=== PATIENT | male | born 1935 | race Caucasian/White ===

== ENCOUNTER → 2019-01-07 | Day surgery (SDC) | payer MEDICARE ==
[~2019-01-07] MED LIST: ALEVE220 M1 PO; ARICEPT5 MG PO; ASPIRIN81 MG PO; CELEBREX100 MG PO; CYMBALTA30 MG PO; FINASTERIDE5 MG PO; FLOMAX PO; FLUTICASONE; IOPAMIDOL 200 MG/ML 20 ML VIAL IT ONE; LIDOCAINE HCL 1% 30ML-PF VIAL ONE; LIDOCAINE HCL 2% LOCAL INJ 5 ML SDV VIAL INJ ONE; LINZESS PO; MYRBETRIQ50 MG PO; NAMENDA10 MG PO; OMEPRAZOLE20 MG PO; OMEPRAZOLE40 MG PO; PROPOFOL IV EMULSION 10 MG/ML 20 ML VIAL ONE; SINGULAIR10 MG PO; TRIAMCINOLONE ACET 40 MG/ML VIAL ONE; VIT B12 PO; avodart PO
--- OUTSIDE RECORDS SUMMARY | 2019-01-07 05:26 | XMS REPORT ---
[facility] Address Unknown Phone Unavailable Care Team Providers Care Intermediate Card Tender Name Role Phone Unavailable Unavailable Payers Payer Name Policy Type Policy Number Effective Date Expiration Date Problems This patient has no known problems. Allergies, Adverse Reactions, Alerts Allergy Name Allergy Type Status Severity Reaction(s) Onset Date Inactive Date Treating Clinician Comments No Known Allergies DA Active U 2016-08-29 00:00:00 Medications This patient has no known medications. Results Test Description Test Time Test Comments Text Results Atomic Results Result Comments ALCOHOL 2018-11-09 22:41:00 ALCOHOL (test code=ALC) < 0.003 G/dL <0.003 Ethyl Alcohol Interpretation: 0.100 gm/dL - Legally Intoxicated 0.300-0.400 gm/dL - Severely Intoxicated >0.400 gm/dL - Potentially LethalResults are for Medical purposes only, and not for Legal orEmployment evaluation purposes. - XR CHEST 1 [id number] 22:24:00 FAX: Landon Barajas MD [phone] [place]: St: REG Name: JENNIFER CHEUNG [facility] : [birth year] Age/S: 82/M [address] Unit #: [id number] Loc: G[address]ERS[address] [place] [address] Phys: Landon Rosas MD Acct: [id number] Dis Date: Status: REG ER PHONE #: [phone] Exam Date: 11/09/20182157 FAX #: [phone] Reason: CHEST PAIN EXAMS: CPT CODE: [id number] XR CHEST 1 V 22139 PROCEDURE: - XR CHEST 1 V INDICATION: 82 years Male, CHEST PAIN. COMPARISON: Chest x- ray 08/27/2016 FINDINGS: Cardiac silhouette is stable. Right bas ilar atelectasis. Left lung is clear. No pneumothorax. Chronic left rib fractures. IMPRESSION: No acute findings SL: XAVI at 9463 * * Reported and signed by: Jordi Nicolas M.D. CC: Landon Rosas MD Technologi st: Val Read, RT(R)(M) Trnscrd Date/Time/By: 11/09/2018 (2223) : By: [email or web address] Orig Print D/T: S: 11/09/2018 (9915) PAGE 1 Signed Report CBC W/AUTO [id number] 22:21:00* Test Item Value Reference Range Comments WHITE BLOOD CELL (test code=WBC) 8.44 x10 3/uL 4.5-11.0 RED BLOOD CELL (test code=RBC) 4.48 x10 6/uL 4.00-5.60 HEMOGLOBIN (test code=HGB) 13.7 g/dL 12.5-16.9 HEMATOCRIT (test code=HCT) 40.5 % 37.5-50.7 MEAN CELL VOLUME (test code=MCV) 90.4 fL 81.0-99.0 MEAN CELL HGB (test code=MCH) 30.6 pg 27.0-33.0 MEAN CELL HGB CONCETRATION (test code=MCHC) 33.8 g/dL 33.0-37.0 RED CELL DISTRIBUTION WIDTH CV (test code=RDW) 12.2 % 11.5-14.5 RED CELL DISTRIBUTION WIDTH SD (test code=RDW-SD) 40.5 fL 37.0-54.0 PLATELET COUNT (test code=PLT) 193 x10 3/uL 150-400 MEAN PLATELET VOLUME (test code=MPV) 10.8 fL 7.0-9.0 NEUTROPHIL % (test code=NT%) 74.7 % 56.0-77.0 IMMATURE GRANULOCYTE % (test code=IG%) 0.5 % 0.0-2.0 LYMPHOCYTE % (test code=LY%) 15.3 % 14.0-32.0 MONOCYTE % (test code=MO%) 7.3 % 4.8-9.0 EOSINOPHIL % (test code=EO%) 2.0 % 0.3-3.7 BASOPHIL % (test code=BA%) 0.2 % 0.0-2.0 NUCLEATED RBC % (test code=NRBC%) 0.0 % 0-0 NEUTROPHIL # (test code=NT#) 6.30 x10 3/uL 2.0-7.6 IMMATURE GRANULOCYTE # (test code=IG#) 0.04 x10 3/uL 0.00-0.03 LYMPHOCYTE # (test code=LY#) 1.29 x10 3/uL 1.0-3.8 MONOCYTE # (test code=MO#) 0.62 x10 3/uL 0.1-0.8 EOSINOPHIL # (test code=EO#) 0.17 x10 3/uL 0.0-0.2 BASOPHIL # (test code=BA#) 0.02 x10 3/uL 0.0-0.2 NUCLEATED RBC # (test code=NRBC#) 0.00 x10 3/uL 0.0-0.1 MANUAL DIFF REQUIRED (test code=MDIFF) NO - XR PELVIS 07/15 [id number] 22:20:00 FAX: Landon Barajas MD [phone] [place]: [address]: REG Name: JENNIFER CHEUNG [facility] : [birth year] Age/S: 82/M [address] [place] [address] Blvd Unit #: [id number] Loc: [address]ERS[address] [place] [address] Phys: Landon Rosas MD Acct: [id number] Dis Date: Status: REG ER PHONE #: [phone] Exam Date: 11/09/20182157 FAX #: [phone] Reason: PELVIC PAIN EXAMS: CPT CODE: [id number] XR PELVIS 1/2 VIEWS 43600 AP PELVIS RADIOGRAPH 11/09/2018 AT 2140 HOURS. CLINICAL HISTORY: Pelvic and bilateral hip pain post f all. COMPARISONS: Visualized pelvis/hips in the abdomen CT from . FINDINGS: A single AP view of the pelvis and hips was ob tained showing severe lumbosacral spondylosis and mild bilateral hip osteo arthritis. No acute fracture, dislocation or avascular necrosis. Moderat e symphyseal osteoarthritis. Nonobstructive bowel gas pattern. IMPRESSION: 1. Degenerative change without acute fracture or dislo cation. SL: ER-H at 2220 Reported and signed by: Gary José M.D. CC: Landon Rosas MD Technologist: Chevy Amador, RT(R) T rnscrd Date/Time/By: 11/09/2018 (2219) : By: [email or web address] Orig Print D/T: S: 11/09/2018 (6922) PAGE 1 Sign ed Report CHEMISTRY 8 [id number] 22:10:00* Test Item Value Reference Range Comments ISTAT-SODIUM (test code=NAP) MMOL/L 134-147 ISTAT-POTASSIUM (test code=KP) MMOL/L 3.4-5.0 ISTAT-CHLORIDE (test code=CLP) MMOL/L 100-108 ISTAT CARBON DIOXIDE (test code=ISTAT-CO2) mmol/L 21-33 ISTAT CALCIUM IONIZED (test code=ISTAT-MELECIO) MG/DL 1.12-1.32 ISTAT-GLUCOSE (test code=GLUP) MG/DL 70-110 ISTAT-BUN (test code=BUNP) MG/DL 7-18 BEDSIDE CREATININE (test code=CREATBED) MG/DL 0.6-1.3 GLOMERULAR FILTRATION RATE POC (test code=GFRBED) 61 ML/MIN CHEMISTRY 8 [id number] 22:10:00* Test Item Value Reference Range Comments ISTAT-SODIUM (test code=NAP) 139 MMOL/L 134-147 ISTAT-POTASSIUM (test code=KP) 4.1 MMOL/L 3.4-5.0 ISTAT-CHLORIDE (test code=CLP) 102 MMOL/L 100-108 Performed by certified boiler operators supervisor at [facility] ISTAT CARBON DIOXIDE (test code=ISTAT-CO2) 27.0 mmol/L 21-33 ISTAT CALCIUM IONIZED (test code=ISTAT-MELECIO) 1.18 MG/DL 1.12-1.32 ISTAT-GLUCOSE (test code=GLUP) 117 MG/DL 70-110 ISTAT-BUN (test code=BUNP) 23 MG/DL 7-18 BEDSIDE CREATININE (test code=CREATBED) 1.2 MG/DL 0.6-1.3 GLOMERULAR FILTRATION RATE POC (test code=GFRBED) 61 ML/MIN
[2019-01-07 06:39] LABS: BASOPHILS % 0.7 % (0.0-1.0); EOSINOPHILS # (AUTO) 0.3 (0.0-0.4); EOSINOPHILS % 5.3 % (0.0-6.0); HEMATOCRIT 40.2 % (38.2-49.6); LYMPHOCYTES # (AUTO) 2.3 (1.0-3.2); LYMPHOCYTES % 37.7 % (18.0-39.1); MEAN CORPUSCULAR HGB CONC 34.8 g/dL (31-35); MEAN CORPUSCULAR VOLUME 89.1 fL (81-99); MONOCYTES # (AUTO) 0.6 (0.2-0.8); MONOCYTES % 9.8 % (4.4-11.3); NEUTROPHILS # (AUTO) 2.8 (2.1-6.9); NEUTROPHILS % 46.3 % (38.7-80.0); PLATELET COUNT 196 x10e3/uL (140-360); RED BLOOD COUNT 4.51 x10e6/uL (4.3-5.7); RED CELL DISTRIBUTION WIDTH 12.4 % (11.7-14.4)
[2019-01-07 07:55] VITALS: BP 106/73
== END | disposition home or self-care (01) ==
LOC: OR 05:23
PROVIDERS: ATTEND Physical Medicine & Rehabilitation Pain Medicine
DX: M47.896 Other spondylosis, lumbar region (principal); M46.1 Sacroiliitis, not elsewhere classified; M54.16 Radiculopathy, lumbar region; M48.061 Spinal stenosis, lumbar region without neurogenic claudication; R93.7 Abnormal findings on diagnostic imaging of other parts of musculoskeletal system; G30.9 Alzheimer's disease, unspecified; F02.80 Dementia in other diseases classified elsewhere, unspecified severity, without behavioral disturbance, psychotic disturbance, mood disturbance, and anxiety; K21.9 Gastro-esophageal reflux disease without esophagitis; K44.9 Diaphragmatic hernia without obstruction or gangrene; K58.9 Irritable bowel syndrome, unspecified; N40.0 Benign prostatic hyperplasia without lower urinary tract symptoms; Z86.73 Personal history of transient ischemic attack (TIA), and cerebral infarction without residual deficits
CPT/HCPCS: 36415; 64493; 64494; 64495; 85025; J2001 ×2; J2704; J3301; Q9967; 77003